=== PATIENT | male | born 1985 | race Caucasian/White ===

== ENCOUNTER 2016-09-11 08:30 | Emergency (ER) | payer OTHER ==
[~2016-09-11] VITALS: Ht 188 cm; Wt 121.7 kg
[2016-09-11 08:33] VITALS: TEMP 36.9; Ht 188 cm; Wt 121.7 kg
[2016-09-11] MEDS ORDERED: KETOROLAC TROMETHAMINE 30 MG/ML VIAL IV STA (08:50)
[2016-09-11] MEDS ORDERED: SODIUM CHLORIDE 0.9% 1000ML 1,000 ML IV ONE (09:00)
[2016-09-11] MEDS ORDERED: IBUP-103 PO (09:03)
--- NOTE | 2016-09-11 09:08 | EMERGENCY ROOM VISIT NOTE ---
History First contact with patient: 08:36 Chief Complaint: ABDOMINAL PAIN Stated Complaint: ABD. PAIN/LOWER LEFT Nursing Triage Summary: Patient states he started with left lower quad. abd. pain 1-2 days ago. Patient reports trouble with constipation - last BM yesterday morning. Denies n/v. History of Present Illness The patient is a 30 year old male who presents to the Emergency Room with complaints of left lower quadrant pain. The pain started 1 day ago. The pain is a pressure, "feels like I have a golf ball" in my lower abdomen. At its onset the pain was 7/10, it is currently a 5/ 10. He feels the area of tenderness is getting bigger. The pain is worse with any kind of movement. Notes mild improvement with leaning forward. He has also had a low grade temperature 99.3, took advil with mild relief. He has not had diarrhea. His last BM was yesterday morning. At his baseline he has 2 BMs per day. He denies blood in the stool or dark tarry stool. He has no nausea or vomiting. His appetite has been slightly reduced, he notes that he has not be drinking much fluid since his symptoms. He has been urinating without difficulty, he has not had dysuria. He denies any recent travel. He has not been on antibiotics recently. He has never had a colonoscopy. Review of Systems A 10 point review of systems was negative unless stated above. Past Medical/Surgical History Right wrist surgery Social History Smoking Status: Former Smoker (3 pack year; quit 10 years ago) Smokeless Tobacco Use: No Alcohol Use: occasionally (6 units per week) Drug Use: none Marital Status: in relationship Housing Status: lives with significant other Occupation Status: employed ([employer]) Current/Historical Medications Scheduled Ciprofloxacin Tab (Cipro), 500 MG PO BID Ibuprofen Tab (Advil), 400 MG PO DAILY Metronidazole (Flagyl), 500 MG PO TID Allergies Coded Allergies: No Known Allergies (Unverified , 09/11/16) Physical Exam Vital Signs Date Time Temp Pulse Resp B/P Pulse Ox O2 Delivery O2 Flow Rate FiO2 09/11/16 10:52 84 16 120/72 94 Room Air 09/11/16 10:30 86 18 130/75 95 Room Air 09/11/16 08:33 36.9 102 18 134/87 95 Room Air Pain Rating (0-10): 5 Physical Exam Constitutional: Vital signs as above were reviewed. Eyes: Pupils equal, round, and reactive to light. Extraocular muscles are intact. No proptosis. No photophobia. ENT: Mucous membranes are moist. Oropharynx is clear. No sinus tenderness. TMs are clear bilaterally. Cardiovascular: Heart with a regular rate and rhythm. Pulses are palpable and symmetric in all 4 extremities. No pedal edema appreciated. Respiratory: Lungs clear to auscultation bilaterally. No wheezes, rales, or rhonchi appreciated. No accessory muscle use. No retractions. No increased work of breathing. GI: Abdomen soft, nondistended. Normal active bowel sounds. No abdominal hernias appreciated. No rebound. No guarding. Left lower quadrant tenderness to palpation. No rebound effect. No pain in right lower quadrant Moderate suprapubic tenderness. No masses palpated No hepatosplenomegaly appreciated : No CVA tenderness appreciated. Musculoskeletal: No midline cervical or vertebral tenderness. No gross deformities. No bony tenderness. No calf swelling or tenderness. Integumentary: Warm, dry, no rashes appreciated. Neurological: Patient awake, alert, and oriented x 3. Cranial nerves two through 12 grossly intact. Motor 5 out of 5 strength bilateral upper and lower extremities. Lymph: No cervical lymphadenopathy appreciated. Medical Decision & Procedures ER Provider Diagnostic Interpretation: CT SCAN OF THE ABDOMEN AND PELVIS WITH IV CONTRAST CLINICAL HISTORY: Right lower quadrant abdominal pain. COMPARISON STUDY: No priors. TECHNIQUE: Following the IV administration of 93 cc of Optiray 320, CT scan of the abdomen and pelvis is performed from the lung bases to the proximal femora. Images are reviewed in the axial, sagittal, and coronal planes. IV contrast was administered without complication. Automated dose control exposure was utilized. CT DOSE: 1212.73 mGy.cm FINDINGS: Lung bases: The heart is normal in size and without pericardial effusion. The lung bases are clear noting dependent atelectasis. Liver: The contrast-enhanced liver is enlarged, measuring 22.6 cm in length. Liver demonstrates diffusely diminished attenuation consistent with severe hepatic steatosis. Fatty sparing is seen adjacent to gallbladder fossa. There is no intrahepatic biliary ductal dilatation. The hepatic veins and portal veins are patent. Gallbladder: Unremarkable. Spleen: Normal in size and attenuation. Pancreas: Unremarkable. Adrenal glands: Unremarkable. Kidneys: The contrast enhanced kidneys are normal in size and without hydronephrosis. An extrarenal pelvis is noted on the left. The kidneys enhance symmetrically. Abdominal vasculature: The abdominal aorta is normal in course and caliber. Bowel: The small bowel and colon are normal in course and caliber. There is mild sigmoid diverticulosis. There is significant pericolonic inflammatory stranding is trace fluid around the proximal sigmoid colon consistent with acute diverticulitis. There is no evidence of diverticular abscess. The appendix is well-visualized and normal. Peritoneum: There is no intraperitoneal free air. There is trace free fluid in the pelvis and in the left paracolic gutter. There is a fat-containing umbilical hernia. Lymphadenopathy: None. Pelvic viscera: The bladder, prostate, and seminal vesicles are normal as visualized. There is a fat-containing right inguinal hernia. Skeletal structures: No lytic or blastic lesions are seen. IMPRESSION: 1. Findings are consistent with acute sigmoid diverticulitis. There is no intraperitoneal free air or evidence of abscess. 2. A small volume of free fluid in the pelvis and the left paracolic gutter is likely on a reactive basis. 3. Hepatomegaly and severe hepatic steatosis. Electronically signed by: Deep Ward M.D. 09/11/2016 11:09 AM Dictated Date/Time: 09/11/2016 11:04 AM Laboratory Results 09/11/16 09:00 Red Blood Count 5.19, Mean Corpuscular Volume 85.7, Mean Corpuscular Hemoglobin 29.9, Mean Corpuscular Hemoglobin Concent 34.8, Mean Platelet Volume 11.1, Neutrophils (%) (Auto) 75.1, Lymphocytes (%) (Auto) 17.2, Monocytes (%) (Auto) 6.6, Eosinophils (%) (Auto) 0.7, Basophils (%) (Auto) 0.1, Neutrophils # (Auto) 9.02, Lymphocytes # (Auto) 2.07, Monocytes # (Auto) 0.79, Eosinophils # (Auto) 0.08, Basophils # (Auto) 0.01 09/11/16 09:00 Test 09/11/16 08:40 09/11/16 09:00 Urine Color YELLOW Urine Appearance CLEAR (CLEAR) Urine pH 6.0 (4.5-7.5) Urine Specific [place] 1.019 (1.000-1.030) Urine Protein NEG (NEG) Urine Glucose (UA) NEG (NEG) Urine Ketones NEG (NEG) Urine Occult Blood NEG (NEG) Urine Nitrite NEG (NEG) Urine Bilirubin NEG (NEG) Urine Urobilinogen NEG (NEG) Urine Leukocyte Esterase NEG (NEG) White Blood Count 12.01 K/uL (4.8-10.8) Red Blood Count 5.19 M/uL (4.7-6.1) Hemoglobin 15.5 g/dL (14.0-18.0) Hematocrit 44.5 % (42-52) Mean Corpuscular Volume 85.7 fL (80-100) Mean Corpuscular Hemoglobin 29.9 pg (25-34) Mean Corpuscular Hemoglobin Concent 34.8 g/dl (32-36) Platelet Count 218 K/uL (130-400) Mean Platelet Volume 11.1 fL (7.4-10.4) Neutrophils (%) (Auto) 75.1 % Lymphocytes (%) (Auto) 17.2 % Monocytes (%) (Auto) 6.6 % Eosinophils (%) (Auto) 0.7 % Basophils (%) (Auto) 0.1 % Neutrophils # (Auto) 9.02 K/uL (1.4-6.5) Lymphocytes # (Auto) 2.07 K/uL (1.2-3.4) Monocytes # (Auto) 0.79 K/uL (0.11-0.59) Eosinophils # (Auto) 0.08 K/uL (0-0.5) Basophils # (Auto) 0.01 K/uL (0-0.2) RDW Standard Deviation 39.2 fL (36.4-46.3) RDW Coefficient of Variation 12.5 % (11.5-14.5) Immature Granulocyte % (Auto) 0.3 % Immature Granulocyte # (Auto) 0.04 K/uL (0.00-0.02) Anion Gap 12.0 mmol/L (3-11) Est Creatinine Clear Calc Drug Dose 164.9 ml/min Estimated GFR () 131.4 Estimated GFR (Non- 113.4 BUN/Creatinine Ratio 12.2 (10-20) Calcium Level 8.8 mg/dl (8.5-10.1) Total Bilirubin 0.9 mg/dl (0.2-1) Aspartate Amino Transf (AST/SGOT) 12 U/L (15-37) Alanine Aminotransferase (ALT/SGPT) 41 U/L (12-78) Alkaline Phosphatase 60 U/L (45-117) Total Protein 7.5 gm/dl (6.4-8.2) Albumin 3.8 gm/dl (3.4-5.0) Globulin 3.7 gm/dl (2.5-4.0) Albumin/Globulin Ratio 1.0 (0.9-2) Medications Administered Medications (Trade) Dose Ordered Sig/Miguelangel Route Start Time Stop Time Status Last Admin Dose Admin Sodium Chloride (Nss 1000ml) 1,000 ml @ 999 mls/hr Q1H1M ONCE IV 09/11/16 09:00 09/11/16 12:19 DC 09/11/16 09:01 999 MLS/HR Ketorolac Tromethamine (Toradol Inj) 30 mg NOW STAT IV 09/11/16 08:50 09/11/16 08:54 DC 09/11/16 09:02 30 MG Acetaminophen (Tylenol Tab) 1,000 mg NOW STAT PO 09/11/16 10:13 09/11/16 12:19 DC 09/11/16 10:31 1,000 MG Ciprofloxacin (Cipro Tab) 500 mg NOW STAT PO 09/11/16 11:26 09/11/16 12:19 DC 09/11/16 11:41 500 MG Metronidazole (Flagyl Tab) 500 mg NOW STAT PO 09/11/16 11:26 09/11/16 12:19 DC 09/11/16 11:41 500 MG ED Course 08:40 - Patient evaluated orders: 30 mg Toradol IV; 1 L NSS bolus 09:40 - Labs reviewed 1 g Tylenol PO 10:30 - Normal labs but patient has mild leukocytosis at 12 CT with IV contrast ordered 11:15 - CT reviewed; noted sigmoid diverticulitis Discussed results with patient; decision made to discharge with outpatient antibiotic treatment First dose for Cipro 500 mg and Flagyl 500 mg given PO 11:40 - Patient discharged in stable condition Medical Decision A thorough history was obtained, physical examination performed and the EMR was reviewed. The case was reviewed multiple times over with Dr. Dina Mejia during the patient's ED visit. Patient presents with left lower quadrant pain with low grade fevers and mild leukocytosis. Differential diagnosis includes diverticulitis, infectious colitis, ischemic colitis, c.diff colitis, evolving appendicitis, renal stone, urinary tract infection. Labs showed mild leukocytosis at 12. Renal and liver function was intact. CT scan was positive for sigmoid diverticulitis. Fortunately, there was no evidence of perforation or abscess. Incidentally, CT also showed hepatic steatosis. Patient was advised of the result. He did not have altered sensorium, could take oral medication and was hemodynamically stable throughout his ED visit so we felt he could be discharged on an oral regimen. He will have Ciprofloxacin 500 mg BID x 10 days along with Metronidazole 500 mg TID x 10 days. Patient was advised of CT findings and we recommended PCP follow-up every 3 days during antibiotic course to ensure continued improvement in symptoms. In discussion with patient there was no need to discharge with medications for pain. Patient was discharged in stable condition. He was feeling better at discharge. Impression Primary Impression: Sigmoid diverticulitis Departure Information Dispostion Home / Self-Care Condition GOOD Prescriptions Metronidazole (Flagyl) 500 Mg Tab 500 MG PO TID for 10 Days, #30 TAB Prov: Jake Evans MD 09/11/16 Ciprofloxacin Tab (Cipro) 250 Mg Tab 500 MG PO BID for 10 Days, #40 TAB Prov: Jake Evans MD 09/11/16 Referrals No Doctor, Assigned (PCP) Patient Instructions My [facility] Additional Instructions You came to the ED for left lower quadrant pain. You have sigmoid diverticulitis. Fortunately, you can be treated as an outpatient. You need to take 2 antibiotics for the next 10 days. These antibiotics are Ciprofloxacin and Metronidazole. You will be given your first dose today in the emergency department. Otherwise, you should see a provider every 2-3 to ensure that you continue to improve. If you are looking for a physician, you can contact: Dr. Jake Evans [address], [address] [facility], [address] Regarding your diet, try taking softer foods and clears over the next couple of days and advance your diet as tolerate. Avoid bulky foods like meats. If your symptoms fail to improve, acutely worsen, please seek medical attention immediately by either calling your primary care provider or going to your nearest emergency department. Otherwise, please see your primary care provider in 3-5 days to ensure that your symptoms continue to improve. It was a pleasure to be involved in your care and we wish you the best.
[2016-09-11 09:11] LABS: BASO % 0.1 %; BASO ABS # 0.01 K/uL (0-0.2); COMPLETE YES; EOS % 0.7 %; HEMATOCRIT 44.5 % (42-52); IG% 0.3 %; LYMPH % 17.2 %; LYMPH ABS # 2.07 K/uL (1.2-3.4); MEAN CELL VOLUME 85.7 fL (80-100); MEAN CORPUSCULAR HEMOGLOBIN 29.9 pg (25-34); MEAN CORPUSCULAR HGB CONC 34.8 g/dl (32-36); MEAN PLATELET VOLUME 11.1 fL (7.4-10.4); MONO % 6.6 %; NEUT % 75.1 %; PLATELET COUNT 218 K/uL (130-400); RED BLOOD COUNT 5.19 M/uL (4.7-6.1); WHITE BLOOD COUNT 12.01 K/uL (4.8-10.8)
[2016-09-11 09:29] LABS: BUN/CREATININE RATIO 12.2 (10-20); CALCIUM 8.8 mg/dl (8.5-10.1); CREATININE 0.9 mg/dl (0.60-1.40); POTASSIUM 3.7 mmol/L (3.5-5.1)
[2016-09-11] MEDS ORDERED: ACETAMINOPHEN 500 MG TAB PO STA (10:13)
[2016-09-11 10:41] LABS: URINE APPEARANCE CLEAR (CLEAR); URINE BILIRUBIN NEG (NEG); URINE COLOR YELLOW; URINE NITRITE NEG (NEG); URINE SPECIFIC GRAVITY 1.019 (1.000-1.030); UROBILINOGEN NEG (NEG); ZZUR CULT IF INDIC CLEAN CATCH NO
[2016-09-11] MEDS ORDERED: OPTIRAY 320 IV PRN (10:45)
[2016-09-11 10:51] LABS: MANUAL MICROSCOPIC REQUIRED? NO; REVIEW REQ? NO
[2016-09-11 10:52] VITALS: BP 120/72; PULSE 84; O2SAT 94
--- NOTE | 2016-09-11 11:11 | DIAGNOSTIC IMAGING REPORT ---
CT SCAN OF THE ABDOMEN AND PELVIS WITH IV CONTRAST CLINICAL HISTORY: Right lower quadrant abdominal pain. COMPARISON STUDY: No priors. TECHNIQUE: Following the IV administration of 93 cc of Optiray 320, CT scan of the abdomen and pelvis is performed from the lung bases to the proximal femora. Images are reviewed in the axial, sagittal, and coronal planes. IV contrast was administered without complication. Automated dose control exposure was utilized. CT DOSE: 1212.73 mGy.cm FINDINGS: Lung bases: The heart is normal in size and without pericardial effusion. The lung bases are clear noting dependent atelectasis. Liver: The contrast-enhanced liver is enlarged, measuring 22.6 cm in length. Liver demonstrates diffusely diminished attenuation consistent with severe hepatic steatosis. Fatty sparing is seen adjacent to gallbladder fossa. There is no intrahepatic biliary ductal dilatation. The hepatic veins and portal veins are patent. Gallbladder: Unremarkable. Spleen: Normal in size and attenuation. Pancreas: Unremarkable. Adrenal glands: Unremarkable. Kidneys: The contrast enhanced kidneys are normal in size and without hydronephrosis. An extrarenal pelvis is noted on the left. The kidneys enhance symmetrically. Abdominal vasculature: The abdominal aorta is normal in course and caliber. Bowel: The small bowel and colon are normal in course and caliber. There is mild sigmoid diverticulosis. There is significant pericolonic inflammatory stranding is trace fluid around the proximal sigmoid colon consistent with acute diverticulitis. There is no evidence of diverticular abscess. The appendix is well-visualized and normal. Peritoneum: There is no intraperitoneal free air. There is trace free fluid in the pelvis and in the left paracolic gutter. There is a fat-containing umbilical hernia. Lymphadenopathy: None. Pelvic viscera: The bladder, prostate, and seminal vesicles are normal as visualized. There is a fat-containing right inguinal hernia. Skeletal structures: No lytic or blastic lesions are seen. IMPRESSION: 1. Findings are consistent with acute sigmoid diverticulitis. There is no intraperitoneal free air or evidence of abscess. 2. A small volume of free fluid in the pelvis and the left paracolic gutter is likely on a reactive basis. 3. Hepatomegaly and severe hepatic steatosis. Electronically signed by: Deep Ward M.D. 09/11/2016 11:09 AM Dictated Date/Time: 09/11/2016 11:04 AM
[2016-09-11] MEDS ORDERED: CIPROFLOXACIN 500 MG TAB PO STA (11:26)
[2016-09-11] MEDS ORDERED: METRONIDAZOLE 250 MG TAB PO STA (11:26)
[2016-09-11] MEDS ORDERED: CIPR1TAB11 PO (11:45)
[2016-09-11] MEDS ORDERED: METR-163 PO (11:45)
--- NOTE | 2016-09-11 17:40 | EMERGENCY ROOM VISIT NOTE ---
ED Visit Note First contact with patient: 08:37 Resident Physician Supervision Note: I interviewed and examined the patient. Discussed with Dr. Evans and agree with findings and plan as documented in the note. Any exceptions or clarifications are listed here: CT reveals evidence of acute sigmoid diverticulitis without evidence of perforation or abscess collection. Patient will be treated with Cipro/Flagyl. Please refer to Dr. Evans's notes for further details. Documented By: Dina Mejia
== END 2016-09-11 11:50 | disposition home or self-care (01) ==
LOC: C.EDB 08:31
DX: K57.32 Diverticulitis of large intestine without perforation or abscess without bleeding (principal); D72.829 Elevated white blood cell count, unspecified; Z87.891 Personal history of nicotine dependence

== ENCOUNTER 2017-02-17 09:56 | Emergency (ER) | payer OTHER ==
[~2017-02-17] VITALS: Ht 188 cm; Wt 119.0 kg
[~2017-02-17 09:56] MED LIST: IBUP-103 PO
[2017-02-17 10:09] VITALS: TEMP 36.6; Ht 188 cm; Wt 119.0 kg
[2017-02-17] MEDS ORDERED: ACET-1256 PO (10:15)
[2017-02-17] MEDS ORDERED: KETOROLAC TROMETHAMINE 30 MG/ML VIAL IV STA (10:40)
[2017-02-17] MEDS ORDERED: SODIUM CHLORIDE 0.9% 1000ML 1,000 ML IV STA (10:40)
[2017-02-17] MEDS ORDERED: ONDANSETRON INJ 2 MG/ML 2 ML VIAL IV STA (10:40)
[2017-02-17] MEDS ORDERED: FENTANYL CITRATE INJ 50 MCG/1 ML 2 ML VIAL IV PRN (10:45)
--- NOTE | 2017-02-17 10:45 | EMERGENCY ROOM VISIT NOTE ---
History First contact with patient: 10:13 Chief Complaint: ABDOMINAL PAIN Stated Complaint: ABD. PAIN History of Present Illness The patient is a 31 year old male who presents to the Emergency Room with complaints of a one-day history of abdominal pain. Patient states that yesterday morning he had a dull suprapubic discomfort that gradually worsened throughout the day. He did take a Tylenol and went to work and throughout the day the pain continued to worsen and move throughout the abdomen. The patient also had loose diarrhea yesterday that he describes as mucousy. The patient states that the pain is 7 out of 10 at its worst, does not change with movement , and occasionally comes in waves. The patient states that he feels like there is pressure on his bladder causing him to go to the bathroom frequently. He says that he feels like he had a fever in the afternoon, took a Tylenol, and when it wore off in the evening he began to feel feverish again last night. The patient was seen in the ED in August for diverticulitis found on CT. He was treated with a short course of antibiotics and it subsequently resolved. Patient states that this pain is different because during his previous workup in the emergency department his pain was over the left lower quadrant and today it is more diffuse. The patient has had no appetite since experiencing the discomfort yesterday afternoon. The patient denies any vomiting, blood in his stool, chest pain, lightheadedness, vision changes, burning on urination. Review of Systems See HPI for pertinent positives and negatives. A total of ten systems were reviewed and were otherwise negative. Past Medical/Surgical History Medical Problems: (1) Diverticulitis (2) No Known Active Medical Problems Social History Smoking Status: Former Smoker Alcohol Use: occasionally Drug Use: none Marital Status: in relationship Housing Status: lives with significant other Occupation Status: employed Current/Historical Medications Scheduled Ciprofloxacin Hcl (Cipro), 500 MG PO BID Ibuprofen Tab (Advil), 400 MG PO DAILY Ondasetron Odt (Zofran Odt), 4 MG SL Q6H Scheduled PRN Acetaminophen (Tylenol), Unknown Dose PO UD PRN for Pain Allergies Coded Allergies: No Known Allergies (Unverified , 02/17/17) Physical Exam Vital Signs Date Time Temp Pulse Resp B/P (MAP) Pulse Ox O2 Delivery O2 Flow Rate FiO2 02/17/17 14:15 84 20 122/72 96 02/17/17 11:50 86 20 128/75 96 Room Air 02/17/17 11:19 84 20 140/84 95 Room Air 02/17/17 11:09 96 Room Air 02/17/17 10:09 36.6 91 18 148/74 97 Room Air Physical Exam GENERAL: Awake, alert, well-appearing, in no distress HENT: Normocephalic, atraumatic. Oropharynx unremarkable. EYES: Normal conjunctiva. Sclera non-icteric. NECK: Supple. No nuchal rigidity. FROM. No JVD. RESPIRATORY: Clear to auscultation. CARDIAC: Regular rate, normal rhythm. Extremities warm and well perfused. Pulses equal. ABDOMEN: Soft, non-distended. Tenderness over LLQ and RLQ. No rebound, masses, or pulsations palpable. RECTAL: Deferred. MUSCULOSKELETAL: Chest examination reveals no tenderness. The back is symmetrical on inspection without obvious abnormality. There is no CVA tenderness to palpation. No joint edema. LOWER EXTREMITIES: Calves are equal size bilaterally and non-tender. No edema. No discoloration. NEURO: Normal sensorium. No sensory or motor deficits noted. SKIN: No rash or jaundice noted. Medical Decision & Procedures Laboratory Results 02/17/17 10:50 Red Blood Count 5.38, Mean Corpuscular Volume 86.1, Mean Corpuscular Hemoglobin 29.2, Mean Corpuscular Hemoglobin Concent 33.9, Mean Platelet Volume 11.3, Neutrophils (%) (Auto) 77.3, Lymphocytes (%) (Auto) 14.6, Monocytes (%) (Auto) 7.6, Eosinophils (%) (Auto) 0.3, Basophils (%) (Auto) 0.1, Neutrophils # (Auto) 10.32, Lymphocytes # (Auto) 1.95, Monocytes # (Auto) 1.02, Eosinophils # (Auto) 0.04, Basophils # (Auto) 0.01 02/17/17 10:50 Test 02/17/17 10:48 02/17/17 10:50 Urine Color DK YELLOW Urine Appearance TURBID (CLEAR) Urine pH 7.5 (4.5-7.5) Urine Specific [place] 1.027 (1.000-1.030) Urine Protein NEG (NEG) Urine Glucose (UA) NEG (NEG) Urine Ketones NEG (NEG) Urine Occult Blood NEG (NEG) Urine Nitrite NEG (NEG) Urine Bilirubin NEG (NEG) Urine Urobilinogen NEG (NEG) Urine Leukocyte Esterase NEG (NEG) Urine WBC (Auto) 0 /hpf (0-5) Urine RBC (Auto) 0-4 /hpf (0-4) Urine Hyaline Casts (Auto) 1-5 /lpf (0-5) Urine Epithelial Cells (Auto) 5-10 /lpf (0-5) Urine Bacteria (Auto) NEG (NEG) White Blood Count 13.36 K/uL (4.8-10.8) Red Blood Count 5.38 M/uL (4.7-6.1) Hemoglobin 15.7 g/dL (14.0-18.0) Hematocrit 46.3 % (42-52) Mean Corpuscular Volume 86.1 fL (80-100) Mean Corpuscular Hemoglobin 29.2 pg (25-34) Mean Corpuscular Hemoglobin Concent 33.9 g/dl (32-36) Platelet Count 219 K/uL (130-400) Mean Platelet Volume 11.3 fL (7.4-10.4) Neutrophils (%) (Auto) 77.3 % Lymphocytes (%) (Auto) 14.6 % Monocytes (%) (Auto) 7.6 % Eosinophils (%) (Auto) 0.3 % Basophils (%) (Auto) 0.1 % Neutrophils # (Auto) 10.32 K/uL (1.4-6.5) Lymphocytes # (Auto) 1.95 K/uL (1.2-3.4) Monocytes # (Auto) 1.02 K/uL (0.11-0.59) Eosinophils # (Auto) 0.04 K/uL (0-0.5) Basophils # (Auto) 0.01 K/uL (0-0.2) RDW Standard Deviation 39.7 fL (36.4-46.3) RDW Coefficient of Variation 12.6 % (11.5-14.5) Immature Granulocyte % (Auto) 0.1 % Immature Granulocyte # (Auto) 0.02 K/uL (0.00-0.02) Prothrombin Time 11.0 SECONDS (9.0-12.0) Prothromb Time International Ratio 1.0 (0.9-1.1) Activated Partial Thromboplast Time 35.1 SECONDS (21.0-31.0) Partial Thromboplastin Ratio 1.4 Anion Gap 5.0 mmol/L (3-11) Est Creatinine Clear Calc Drug Dose 151.5 ml/min Estimated GFR () 120.7 Estimated GFR (Non- 104.2 BUN/Creatinine Ratio 9.2 (10-20) Calcium Level 9.2 mg/dl (8.5-10.1) Total Bilirubin 1.2 mg/dl (0.2-1) Direct Bilirubin 0.2 mg/dl (0-0.2) Aspartate Amino Transf (AST/SGOT) 10 U/L (15-37) Alanine Aminotransferase (ALT/SGPT) 35 U/L (12-78) Alkaline Phosphatase 62 U/L (45-117) Total Protein 7.7 gm/dl (6.4-8.2) Albumin 3.9 gm/dl (3.4-5.0) Lipase 117 U/L (73-393) Medications Administered Medications (Trade) Dose Ordered Sig/Miguelangel Route Start Time Stop Time Status Last Admin Dose Admin Sodium Chloride 1,000 ml @ 999 mls/hr Q1H1M STAT IV 02/17/17 10:40 02/17/17 11:40 DC 02/17/17 10:40 999 MLS/HR Ondansetron HCl (Zofran Inj) 4 mg NOW STAT IV 02/17/17 10:40 02/17/17 10:42 DC 02/17/17 11:09 4 MG Fentanyl Citrate (Fentanyl Inj) 100 mcg Q1H PRN IV 02/17/17 10:45 02/17/17 14:56 DC 02/17/17 11:09 100 MCG Ketorolac Tromethamine (Toradol Inj) 30 mg NOW STAT IV 02/17/17 10:40 02/17/17 10:42 DC 02/17/17 11:09 30 MG Ciprofloxacin (Cipro Tab) 500 mg NOW STAT PO 02/17/17 13:45 02/17/17 13:46 DC 02/17/17 14:10 500 MG Metronidazole (Flagyl Tab) 500 mg NOW STAT PO 02/17/17 13:45 02/17/17 13:46 DC 02/17/17 14:10 500 MG Medical Decision Patient is a 31 year old male that presents with abdominal pain Etiologies such as appendicitis, diverticulitis, obstruction, inflammatory bowel disease, renal colic, PUD, biliary pathology, pancreatitis, mesenteric ischemia, aortic pathology, infections, genitourinary, UTI, perforated viscus, as well as others were entertained. Imaging: Abdominal CT, CXR Labs: CBC, BMP, Lipase, LFT, PT/INR Medications: Ketorolac, Fentanyl, Zofran 1L NS Impression Primary Impression: Abdominal pain After examining the patient, I placed orders and presented the patient to Dr. Mckenzie. I was then dismissed at the end of my shift. Departure Information Prescriptions Ondasetron Odt (ZOFRAN ODT) 4 Mg Tab 4 MG SL Q6H for Nausea, #15 TAB Prov: Kayode Mckenzie D.O. 02/17/17 Ciprofloxacin Hcl (CIPRO) 500 Mg Tab 500 MG PO BID, #20 TAB Prov: Kayode Mckenzie D.O. 02/17/17 Referrals No Doctor, Assigned (PCP) Patient Instructions My [facility] Problem Qualifiers Primary Impression: Abdominal pain Abdominal location: unspecified location Qualified Codes: R10.9 - Unspecified abdominal pain
[2017-02-17] MEDS ORDERED: OPTIRAY 320 IV PRN (11:00)
--- NOTE | 2017-02-17 11:02 | DIAGNOSTIC IMAGING REPORT ---
CHEST ONE VIEW PORTABLE CLINICAL HISTORY: Pain, radiating to the abdomen. COMPARISON STUDY: No previous studies for comparison. FINDINGS: The cardiac and mediastinal contours are normal. There is no evidence of focal pulmonary consolidation. There is no evidence of failure. No pleural effusions are visualized.[ No free intraperitoneal air is visualized IMPRESSION: No active disease in the chest. Electronically signed by: Deangelo Newton M.D. 02/17/2017 11:00 AM Dictated Date/Time: 02/17/2017 11:00 AM
[2017-02-17 11:09] VITALS: O2SAT 96
[2017-02-17 11:17] LABS: BASO % 0.1 %; BASO ABS # 0.01 K/uL (0-0.2); COMPLETE YES; EOS % 0.3 %; HEMATOCRIT 46.3 % (42-52); IG% 0.1 %; LYMPH % 14.6 %; LYMPH ABS # 1.95 K/uL (1.2-3.4); MEAN CELL VOLUME 86.1 fL (80-100); MEAN CORPUSCULAR HEMOGLOBIN 29.2 pg (25-34); MEAN CORPUSCULAR HGB CONC 33.9 g/dl (32-36); MEAN PLATELET VOLUME 11.3 fL (7.4-10.4); MONO % 7.6 %; NEUT % 77.3 %; PLATELET COUNT 219 K/uL (130-400); RED BLOOD COUNT 5.38 M/uL (4.7-6.1); WHITE BLOOD COUNT 13.36 K/uL (4.8-10.8)
[2017-02-17 11:27] LABS: PARTIAL THROMBOPLASTIN RATIO 1.4
[2017-02-17 11:36] LABS: URINE APPEARANCE TURBID (CLEAR); URINE BILIRUBIN NEG (NEG); URINE COLOR DK YELLOW; URINE NITRITE NEG (NEG); URINE PH 7.5 (4.5-7.5); URINE SPECIFIC GRAVITY 1.027 (1.000-1.030); UROBILINOGEN NEG (NEG); ZZUR CULT IF INDIC CLEAN CATCH NO
[2017-02-17 11:37] LABS: MANUAL MICROSCOPIC REQUIRED? NO; REVIEW REQ? NO
[2017-02-17 11:41] LABS: BUN/CREATININE RATIO 9.2 (10-20); CALCIUM 9.2 mg/dl (8.5-10.1); CREATININE 0.96 mg/dl (0.60-1.40)
--- NOTE | 2017-02-17 13:33 | DIAGNOSTIC IMAGING REPORT ---
CT ABD/PELVIS IV AND ORAL CONT CLINICAL HISTORY: Worsening lower abdominal pain. History of diverticulitis. COMPARISON STUDY: 09/11/2016 TECHNIQUE: Following the IV administration of 94 mL of Optiray-320, CT scan of the abdomen and pelvis was performed from the lung bases to the proximal femurs. Images are reviewed in the axial, sagittal, and coronal planes. IV contrast was administered without complication. CT DOSE: 1089.78 mGycm FINDINGS: Lower chest: There are bibasal atelectatic changes present. Liver: There is hepatic steatosis. No focal masses are visualized. Gallbladder: Unremarkable. Spleen: Normal in size and attenuation. Pancreas: Unremarkable. Adrenal glands: Unremarkable. Kidneys: There is symmetric renal cortical enhancement. The kidneys are normal in size without hydronephrosis. Bowel: There are no transition zones indicate bowel obstruction. The appendix is minimally thickened measuring 7 mm, but there are no periappendiceal inflammatory changes. The finding remains unchanged the preceding study. Acute appendicitis is not felt to be present. There is sigmoid wall thickening and infiltration the perisigmoid fat. Sigmoid diverticula are visualized. The findings are indicative of acute diverticulitis. There are no fluid collections to indicate a drainable peridiverticular abscess. Peritoneum: There is no intraperitoneal free air or abdominal ascites. Vasculature: The abdominal aorta is normal in course and caliber. Adenopathy: None. Pelvic viscera: The bladder, and pelvic viscera are unremarkable. Skeletal structures: No destructive osseous lesions are seen. IMPRESSION: 1. No evidence of bowel obstruction. No evidence of free air 2. Acute sigmoid diverticulitis. No evidence of abscess. 3. Hepatic steatosis Electronically signed by: Deangelo Newton M.D. 02/17/2017 1:32 PM Dictated Date/Time: 02/17/2017 1:27 PM
[2017-02-17] MEDS ORDERED: CIPR-255 PO (13:44)
[2017-02-17] MEDS ORDERED: ONDA4TAB10 SL (13:44)
[2017-02-17] MEDS ORDERED: METR-162 PO (13:44)
[2017-02-17] MEDS ORDERED: CIPROFLOXACIN 500 MG TAB PO STA (13:45)
[2017-02-17] MEDS ORDERED: METRONIDAZOLE 250 MG TAB PO STA (13:45)
--- NOTE | 2017-02-17 13:45 | EMERGENCY ROOM VISIT NOTE ---
History Report prepared by Bjorn: Alexander Dye Under the Supervision of: Dr. Kayode Mckenzie D.O. First contact with patient: 10:13 Chief Complaint: ABDOMINAL PAIN Stated Complaint: ABD. PAIN Nursing Triage Summary: Two days of bilateral lower quadrant cramping with "constant pressure on my bladder which is really uncomfortable." Relates a small amount of diarrhea. History of Present Illness The patient is a 31 year old male who presents to the Emergency Room with complaints of worsening generalized abdominal pain beginning yesterday. He states that his pain began in his lower abdomen, but has moved throughout. He also complains of a subjective fever, diarrhea, and increased urinary frequency. His fever and diarrhea began yesterday. The patient rates his pain as a 7/10 in severity. He has a history of diverticulitis, but states that his current pain feels different. Source of History: patient Onset: Yesterday Position: abdomen (generalized) Symptom Intensity: 7/10 Timing: worsening Associated Symptoms: + fevers (subjective, yesterday), + diarrhea (yesterday ), + urinary symptoms (increased frequency) Review of Systems See HPI for pertinent positives & negatives. A total of 10 systems reviewed and were otherwise negative. Past Medical & Surgical Medical Problems: (1) Diverticulitis (2) No Known Active Medical Problems Family History No pertinent family history stated. Social History Smoking Status: Former Smoker Alcohol Use: occasionally Drug Use: none Marital Status: in relationship Housing Status: lives with significant other Occupation Status: employed Current/Historical Medications Scheduled Ciprofloxacin Hcl (Cipro), 500 MG PO BID Ibuprofen Tab (Advil), 400 MG PO DAILY Metronidazole (Flagyl), 1 TAB PO TID Ondasetron Odt (Zofran Odt), 4 MG SL Q6H Scheduled PRN Acetaminophen (Tylenol), Unknown Dose PO UD PRN for Pain Allergies Coded Allergies: No Known Allergies (Unverified , 02/17/17) Physical Exam Vital Signs Date Time Temp Pulse Resp B/P (MAP) Pulse Ox O2 Delivery O2 Flow Rate FiO2 02/17/17 11:50 86 20 128/75 96 Room Air 02/17/17 11:19 84 20 140/84 95 Room Air 02/17/17 11:09 96 Room Air 02/17/17 10:09 36.6 91 18 148/74 97 Room Air Physical Exam CONSTITUTIONAL/VITAL SIGNS: Reviewed / noted above. GENERAL: Non-toxic in appearance. INTEGUMENTARY: Warm, dry, and [place]. HEAD: Normocephalic. EYES: without scleral icterus or trauma. ENT/OROPHARYNX: clear and moist. LYMPHADENOPATHY/NECK: Is supple without lymphadenopathy or meningismus. RESPIRATORY: Lungs clear and equal. CARDIOVASCULAR: Regular rate and rhythm. GI/ABDOMEN: Soft. No organomegaly or pulsatile mass. No rebound or guarding. Normal bowel sounds. Tenderness to the bilateral lower abdomen. EXTREMITIES: Warm and well perfused. BACK: No CVA tenderness. NEUROLOGICAL: Intact without focal deficits. PSYCHIATRIC: normal affect. MUSCULOSKELETAL: Normally developed with good muscle tone. Medical Decision & Procedures ER Provider Diagnostic Interpretation: Radiology results as stated below per my review and radiologist interpretation: CHEST ONE VIEW PORTABLE FINDINGS: The cardiac and mediastinal contours are normal. There is no evidence of focal pulmonary consolidation. There is no evidence of failure. No pleural effusions are visualized.[ No free intraperitoneal air is visualized IMPRESSION: No active disease in the chest. Electronically signed by: Deangelo Newton M.D. CT ABD/PELVIS IV AND ORAL CONT FINDINGS: Lower chest: There are bibasal atelectatic changes present. Liver: There is hepatic steatosis. No focal masses are visualized. Gallbladder: Unremarkable. Spleen: Normal in size and attenuation. Pancreas: Unremarkable. Adrenal glands: Unremarkable. Kidneys: There is symmetric renal cortical enhancement. The kidneys are normal in size without hydronephrosis. Bowel: There are no transition zones indicate bowel obstruction. The appendix is minimally thickened measuring 7 mm, but there are no periappendiceal inflammatory changes. The finding remains unchanged the preceding study. Acute appendicitis is not felt to be present. There is sigmoid wall thickening and infiltration the perisigmoid fat. Sigmoid diverticula are visualized. The findings are indicative of acute diverticulitis. There are no fluid collections to indicate a drainable peridiverticular abscess. Peritoneum: There is no intraperitoneal free air or abdominal ascites. Vasculature: The abdominal aorta is normal in course and caliber. Adenopathy: None. Pelvic viscera: The bladder, and pelvic viscera are unremarkable. Skeletal structures: No destructive osseous lesions are seen. IMPRESSION: 1. No evidence of bowel obstruction. No evidence of free air 2. Acute sigmoid diverticulitis. No evidence of abscess. 3. Hepatic steatosis Electronically signed by: Deangelo Newton M.D. Laboratory Results 02/17/17 10:50 Red Blood Count 5.38, Mean Corpuscular Volume 86.1, Mean Corpuscular Hemoglobin 29.2, Mean Corpuscular Hemoglobin Concent 33.9, Mean Platelet Volume 11.3, Neutrophils (%) (Auto) 77.3, Lymphocytes (%) (Auto) 14.6, Monocytes (%) (Auto) 7.6, Eosinophils (%) (Auto) 0.3, Basophils (%) (Auto) 0.1, Neutrophils # (Auto) 10.32, Lymphocytes # (Auto) 1.95, Monocytes # (Auto) 1.02, Eosinophils # (Auto) 0.04, Basophils # (Auto) 0.01 02/17/17 10:50 Test 02/17/17 10:48 02/17/17 10:50 Urine Color DK YELLOW Urine Appearance TURBID (CLEAR) Urine pH 7.5 (4.5-7.5) Urine Specific [place] 1.027 (1.000-1.030) Urine Protein NEG (NEG) Urine Glucose (UA) NEG (NEG) Urine Ketones NEG (NEG) Urine Occult Blood NEG (NEG) Urine Nitrite NEG (NEG) Urine Bilirubin NEG (NEG) Urine Urobilinogen NEG (NEG) Urine Leukocyte Esterase NEG (NEG) Urine WBC (Auto) 0 /hpf (0-5) Urine RBC (Auto) 0-4 /hpf (0-4) Urine Hyaline Casts (Auto) 1-5 /lpf (0-5) Urine Epithelial Cells (Auto) 5-10 /lpf (0-5) Urine Bacteria (Auto) NEG (NEG) White Blood Count 13.36 K/uL (4.8-10.8) Red Blood Count 5.38 M/uL (4.7-6.1) Hemoglobin 15.7 g/dL (14.0-18.0) Hematocrit 46.3 % (42-52) Mean Corpuscular Volume 86.1 fL (80-100) Mean Corpuscular Hemoglobin 29.2 pg (25-34) Mean Corpuscular Hemoglobin Concent 33.9 g/dl (32-36) Platelet Count 219 K/uL (130-400) Mean Platelet Volume 11.3 fL (7.4-10.4) Neutrophils (%) (Auto) 77.3 % Lymphocytes (%) (Auto) 14.6 % Monocytes (%) (Auto) 7.6 % Eosinophils (%) (Auto) 0.3 % Basophils (%) (Auto) 0.1 % Neutrophils # (Auto) 10.32 K/uL (1.4-6.5) Lymphocytes # (Auto) 1.95 K/uL (1.2-3.4) Monocytes # (Auto) 1.02 K/uL (0.11-0.59) Eosinophils # (Auto) 0.04 K/uL (0-0.5) Basophils # (Auto) 0.01 K/uL (0-0.2) RDW Standard Deviation 39.7 fL (36.4-46.3) RDW Coefficient of Variation 12.6 % (11.5-14.5) Immature Granulocyte % (Auto) 0.1 % Immature Granulocyte # (Auto) 0.02 K/uL (0.00-0.02) Prothrombin Time 11.0 SECONDS (9.0-12.0) Prothromb Time International Ratio 1.0 (0.9-1.1) Activated Partial Thromboplast Time 35.1 SECONDS (21.0-31.0) Partial Thromboplastin Ratio 1.4 Anion Gap 5.0 mmol/L (3-11) Est Creatinine Clear Calc Drug Dose 151.5 ml/min Estimated GFR () 120.7 Estimated GFR (Non- 104.2 BUN/Creatinine Ratio 9.2 (10-20) Calcium Level 9.2 mg/dl (8.5-10.1) Total Bilirubin 1.2 mg/dl (0.2-1) Direct Bilirubin 0.2 mg/dl (0-0.2) Aspartate Amino Transf (AST/SGOT) 10 U/L (15-37) Alanine Aminotransferase (ALT/SGPT) 35 U/L (12-78) Alkaline Phosphatase 62 U/L (45-117) Total Protein 7.7 gm/dl (6.4-8.2) Albumin 3.9 gm/dl (3.4-5.0) Lipase 117 U/L (73-393) Laboratory results as stated above per my review. Medications Administered Medications (Trade) Dose Ordered Sig/Miguelangel Route Start Time Stop Time Status Last Admin Dose Admin Sodium Chloride 1,000 ml @ 999 mls/hr Q1H1M STAT IV 02/17/17 10:40 02/17/17 11:40 DC 02/17/17 10:40 999 MLS/HR Ondansetron HCl (Zofran Inj) 4 mg NOW STAT IV 02/17/17 10:40 02/17/17 10:42 DC 02/17/17 11:09 4 MG Fentanyl Citrate (Fentanyl Inj) 100 mcg Q1H PRN IV 02/17/17 10:45 03/03/17 10:44 02/17/17 11:09 100 MCG Ketorolac Tromethamine (Toradol Inj) 30 mg NOW STAT IV 02/17/17 10:40 02/17/17 10:42 DC 02/17/17 11:09 30 MG ED Course 1017: Previous medical records were reviewed. The patient was evaluated in room B4B. A complete history and physical examination was performed. 1040: Ordered Toradol Inj 30 mg IV, Zofran Inj 4 mg IV, Sodium Chloride 1000 ml @ 999 mls/hr IV. 1345: Ordered Flagyl Tab 500 mg PO, Cipro Tab 500 mg PO. 1350: On reevaluation, the patient is resting comfortably. I discussed the results and findings with the patient. He verbalized agreement of the treatment plan. He was discharged home. Medical Decision Differential considered: pancreatitis, hepatitis, acute cholecystitis, AAA, UTI , pyelonephritis, kidney stones, appendicitis, diverticulitis, shingles, bowel obstruction, mesenteric ischemia, intussusception,hernia, testicular torsion. This is a 31-year-old male who presents to the ED with a chief complaint of abdominal pain. The patient's pain has been ongoing for about 1 day. He states that is primarily in the lower abdomen. It is equally on the right and left. He may have had some subjective fevers. He states that he had some diarrhea yesterday. He was a small amount. His pain seems worse with urination and he has some urgency. His physical exam reveals stable vital signs. He is afebrile. His abdomen is soft and tender in the lower abdomen. White blood cell count was 13.3. Complete metabolic panel was normal. Lipase is negative. Urine did not show infection. Chest x-ray was negative for acute disease. CT scan of the abdomen and pelvis reveals acute diverticulitis. The patient will be started on Cipro and Flagyl. He'll be discharged on this. The patient was treated with IV Toradol, IV Zofran, IV fentanyl and IV fluids. By mouth Cipro and Flagyl. Seen in conjunction with the resident. Impression Primary Impression: Acute diverticulitis Scribe Attestation The scribe's documentation has been prepared under my direction and personally reviewed by me in its entirety. I confirm that the note above accurately reflects all work, treatment, procedures, and medical decision making performed by me. Departure Information Dispostion Home / Self-Care Prescriptions Ondasetron Odt (ZOFRAN ODT) 4 Mg Tab 4 MG SL Q6H for Nausea, #15 TAB Prov: Kayode Mckenzie D.O. 02/17/17 Metronidazole (FLAGYL) 500 Mg Tab 1 TAB PO TID for 10 Days, #30 TAB Prov: Kayode Mckenzie D.O. 02/17/17 Ciprofloxacin Hcl (CIPRO) 500 Mg Tab 500 MG PO BID, #20 TAB Prov: Kayode Mckenzie D.O. 02/17/17 Referrals No Doctor, Assigned (PCP) Patient Instructions Diverticulitis Dc, [facility] Additional Instructions Cipro and Flagyl as prescribed. Zofran: Allow one tablet to dissolve under the tongue every 6 hours as needed for nausea or vomiting. Liquid diet for the next 2-3 days until symptoms started to improve. Follow-up with your doctor for further care and evaluation in 1-2 days. Return to the emergency department for worsening or new symptoms or any concerns. You have been examined and treated today on an emergency basis only. This is not a substitute for, or an effort to provide, complete comprehensive medical care. It is impossible to recognize and treat all injuries or illnesses in a single emergency department visit. It is therefore important that you follow up closely with your doctor. Call as soon as possible for an appointment.
[2017-02-17 14:15] VITALS: BP 122/72; PULSE 84; O2SAT 96
== END 2017-02-17 14:20 | disposition home or self-care (01) ==
LOC: C.EDB 09:58
DX: K57.32 Diverticulitis of large intestine without perforation or abscess without bleeding (principal); R19.7 Diarrhea, unspecified; R50.9 Fever, unspecified; Z87.19 Personal history of other diseases of the digestive system; Z87.891 Personal history of nicotine dependence